=== PATIENT | male | born 1965 | race Caucasian/White ===

== ENCOUNTER 2023-03-24 20:01 | Inpatient (IN) | payer BC, SELFPAY ==
[2023-03-24 15:12] VITALS: BP 143/67
[2023-03-24 15:51] LABS: ALT (SGPT) 20 U/L (0-50); AST (SGOT) 27 U/L (17-59); Albumin 3.7 g/dl (3.5-5.0); Alkaline Phosphatase 120 U/L (38-126); Blood Urea Nitrogen 6 mg/dl (9-20); Calcium 8.8 mg/dl (8.4-10.2); Carbon Dioxide 22 mmol/L (22-30); Chloride 94 mmol/L (98-107); Glucose 144 mg/dl (70-99); Potassium 4.8 mmol/L (3.5-5.1); Sodium 129 mmol/L (135-145); Total Bilirubin 0.5 mg/dl (0.2-1.3); Total Protein 6.6 g/dl (6.3-8.2); eGFR > 60.00
[2023-03-24 16:07] LABS: % Basophils 1.2 % (0-2); % Immature Granulocytes 0.3 % (0-0.5); % Lymphocytes 27.2 % (20.5-51.1); % Monocytes 11.7 % (1.7-9.3); % Neutrophils 55.6 % (42.2-75.2); Absolute Basophils 0.1 10^3/uL (0-0.2); Absolute Eosinophils 0.3 10^3/uL (0-0.7); Absolute Lymphocytes 1.9 10^3/uL (1.2-3.4); Absolute Monocytes 0.8 10^3/uL (0.1-0.6); Absolute Neutrophils 3.8 10^3/uL (1.4-6.5); Hematocrit 34.3 % (39.0-52.0); Hemoglobin 12.4 g/dL (13.0-18.0); Mean Corp Hgb Conc. 36.2 g/dL (33.0-37.0); Mean Corpuscular Hgb 34.6 pg (27.0-31.0); Mean Corpuscular Volume 95.8 fL (80.0-94.0); Mean Platelet Volume 9.2 fL (7.4-10.4); Nucleated Red Blood Cells % 0 % (-); Platelet Count 241 10^3/uL (130-400); Red Blood Cell Count 3.58 10^6/uL (4.70-6.10); Red Cell Dist. Width 11.5 % (11.5-14.5); White Blood Cell Count 6.8 10^3/uL (4.8-10.8)
--- NOTE | 2023-03-24 16:36 | ED.SKININJ ---
HPI-Injury
General
Chief Complaint: Skin Problem
Source: patient
Exam Limitations: none
Time Seen by Provider: 03/24/23 16:21
Nursing documentation reviewed up to this point in time: agreed with
Travel History
Have you had any contact with someone who has COVID-19?: No
Do you have any symptoms of coronavirus? Fever > 100 degrees, chills, cough, shortness of breath, sore throat, loss of taste or smell, muscle aches, or headache?: No
History of Present Illness-Injury
Is this injury a work related problem?: No
Is pt an associate of [facility]?: No
Initial Injury comments:
Patient to ED with complaint of pain, redness, swelling left foot. Worsening ulcer left 3rd toe. States he was seen by podiatry approx 3 weeks. Had calus shaved off left 3rd toe. Has been dealing with wound since. Seen by PCP on Saturday and
placed on keflex. Had outpatient US, no dvt. States symptoms continue to worsen. Denies fever/chills. Brought to ED by family for eval.
Past History
Past History
ED Past Medical History: HTN, Hypercholesterolemia and NIDDM
ED Past Surgical History: Urological
Social History
Tobacco: Smoker
Alcohol: Occasional
Drug: None
Employment: Employed
Review of Systems
Review of Systems
Allergies reviewed?: Yes
All Other Systems: ROS reviewed and negative except as documented in HPI and ROS
Constitutional: Reports no symptoms
EENT: Reports no symptoms
Respiratory: Reports no symptoms
Cardiac: Reports no symptoms
ABD/GI: Reports no symptoms
Musculoskeletal: Reports joint pain (left 3rd toe pain)
Skin: Reports other (leftdistal 3rd toe ulceration. Pain redness and swelling to toe, foot.)
Neurological: Reports no symptoms
Psychiatric: Reports no symptoms
Phy Exam
General Physical Exam
General Presentation: well appearing
General age: appears stated age
General Skin: warm
General Habitus: normal
General Hydration: appears well hydrated
Musculoskeletal Exam
Musculoskeletal Exam: neuro vasc intact and other (Cellulitis, ulceration left distal 3rd toe. Pain redness and swelling to foot.)
Skin Exam
Skin Exam: other (ulceration left distal 3rd toe. Redness and swelling to toe and foot)
Psychiatric Exam
Psychiatric Exam: normal mood/affect
Course
Orders/Labs/Results
Orders:
Orders
03/24/23 Dinner
2000 calorie (17 carb) Diabetic
03/24/23 15:27
CMP [Comprehensive Metabolic Panel] Urgent
Complete Blood Count/With Diff Urgent
Blood Culture Urgent
LENNY Source: Blood/Venous
Specimen Description:
03/24/23 16:35
Foot, Left 3 View [CR Foot - Left Min 3 Views] Urgent
Comment:
Reason For Exam: Left 3rd toe ulceration, cellulitis
03/24/23 16:44
Vancomycin 1 Gram/200 ml [Vancocin] 1 gram in 200 ml IV NOW
03/24/23 17:00
Wound Culture [Wound/Abscess/Other Culture] Urgent
LENNY Source: Foot
Specimen Description: Left
Date Specimen was Collected: 03/24/23
Time Specimen was Collected: 16:50
03/24/23 19:06
Admit/Transfer Patient As Directed
Co-Sign Provider:
Level of Care: Inpatient admission
Assign to:: Medical/Surgical
Physician / Group: [facility]sky/Hospitalist
Diagnosis: Left foot diabetic cellulitis
Reason for Hospitalization: Diabetic cellulitis unresponsive to oral antibiotic treatment
Expected length of stay greater than two midnights?: Yes
ELOS- Estimated Length of Stay in days: 4
I certify the patient meets the requirements for IP care: Yes
03/24/23 19:11
Code Status As Directed
Resuscitation Status: Full Code
03/24/23 21:19
0.9% Sodium Chloride [Nss (Preservative Free)] See Protocol IV PRN PRN
Lorazepam [Ativan] 0.5 mg PO HSPRN PRN
Lorazepam [Ativan] 1 mg IV Q1HPRN PRN
Lorazepam [Ativan] 1 mg IV Q2HPRN PRN
Lorazepam [Ativan] 2 mg IV Q1HPRN PRN
03/24/23 21:19
Consult Podiatry [PODIATRY CONSULT] Routine
Consulting Provider: Marichuy Cao
Was physician already notified: Yes
Lower Ext Joint, Left Without MR [MR Left Le Joint Without] Routine
Comment: no contrast
Reason For Exam: left distal foot infection
Recent pill cam endoscopy?: No
Activity As Directed
Activity Level: Out of Bed-Early Mobility
MSAS SCORE As Directed
MSAS Score 0-4: Repeat MSAS every 2 hours until 0-4 for three consecutive assessments, then every 4 hours x 48
hours.
MSAS Score 5-7: For MILD withdrawl symptoms. Repeat MSAS and RASS every 2 hours
MSAS Score 8-11: For MODERATE withdrawal symptoms. Repeat MSAS and RASS every 1 hour. Consider ICU or IMU
level of care.
MSAS Score > 11: For SEVERE withdrawal symptoms. Repeat MSAS and RASS every 1 hour. Notify provider, consider
ICU level of care.
MSAS Additional Instructions: If no improvement or no decrease in score from severe to moderate within 12
hours, consult psychiatry
MSAS Notify Provider: Notify provider if patient requires more than 10 mg of Lorazepam in eight hour period.
Vital Signs As Directed
Frequency: Per unit guidelines
DX Deep Vein Thrombosis Video Routine
03/24/23 22:00
CefTRIAXone [Rocephin] 1,000 mg IV Q24H
Duloxetine Delayed Release [Cymbalta Delayed Release] 60 mg PO BID
Gabapentin [Neurontin] 300 mg PO TID
Labetalol [Trandate] 100 mg PO BID
03/25/23 00:00
Thiamine Injection 200 mg IV Q8
03/25/23 06:00
Basic Metabolic Panel IN AM
Cardiovascular Evaluation IN AM
Complete Blood Count/No Diff IN AM
Ferritin IN AM
Iron IN AM
TSH IN AM
Total Iron Binding IN AM
Urinalysis IN AM
Vitamin B12 IN AM
03/25/23 08:00
Amlodipine [Norvasc] 10 mg PO DAILY
Cyanocobalamin [Vitamin B-12] 1,000 mcg PO DAILY
FOLic ACID [Folvite] 1 mg PO DAILY
Lisinopril [Zestril] 40 mg PO DAILY
Nicotine [Nicoderm Transdermal] 14 mg TRANSDERM DAILY
Vitamin B Complex with C [B COMPLEX w/VITAMIN C] 1 caplet PO DAILY
03/25/23 18:00
Enoxaparin Sodium [Lovenox] 40 mg SC QPM
Rosuvastatin Calcium [Crestor] 5 mg PO QPM
03/27/23 20:00
Thiamine HCl [Vitamin B1] 100 mg PO BID
Abnormal Lab Results
03/24/23
15:27
RBC 3.58 L 10^6/uL
(4.70-6.10)
Hgb 12.4 L g/dL
(13.0-18.0)
Hct 34.3 L %
(39.0-52.0)
MCV 95.8 H fL
(80.0-94.0)
MCH 34.6 H pg
(27.0-31.0)
Absolute Monos (auto) 0.8 H 10^3/uL
(0.1-0.6)
Monocytes % 11.7 H %
(1.7-9.3)
Sodium 129 L mmol/L
(135-145)
Chloride 94 L mmol/L
(98-107)
BUN 6 L mg/dl
(9-20)
Creatinine 0.5 L mg/dL
(0.7-1.3)
Glucose 144 H mg/dl
(70-99)
03/24/23 15:27
03/24/23 15:27
Vital Signs
Initial and Last Documented VS:
Initial Vital Signs
Temp Pulse Resp BP Pulse Ox
98.4 F 73 18 143/67 99
03/24/23 15:12 03/24/23 15:12 03/24/23 15:12 03/24/23 15:12 03/24/23 15:12
Last Documented Vital Signs
Temp Pulse Resp BP Pulse Ox
98.5 F 80 18 121/103 97
03/24/23 21:19 03/24/23 22:18 03/24/23 21:19 03/24/23 22:18 03/24/23 21:19
*Radiology
Radiology exam reviewed: radiology read reviewed
*Pulse Oximetry
Patient hypoxic: no
*Critical Care Note
Total Time (30-74mins, 75-104mins- exclusive of procedures): Not Applicable
ED Attending Note
-
Portions of this chart may have been created with voice recognition software.� Occasional wrong word or��sound alike� substitutions may have occurred due to the inherent limitations of voice recognition software.
Discharge Plan
Departure
Patient Disposition: Admit
Date of Disposition: 03/24/23
Time of Disposition: 16:43
Presentation/result/management discussed w/ accepting MD/DO: Hospitalist
Patient with high blood pressure during this ER visit?: No
Condition: Good
Covid-19: Not Applicable
Discharge Problem:
Diabetic toe ulcer, Cellulitis of foot
Interventions
Interventions:
*Risk Screen - Suicide Last Done: 03/24/23 16:25
*General Assessment Last Done: 03/24/23 16:25
*Neglect/Abuse Screening Last Done: 03/24/23 16:25
ED- Fall Risk Assessment Last Done: 03/24/23 16:27
*ED COVID-19 Vaccine History Last Done: 03/24/23 15:12
*Nursing Disposition Last Done: 03/24/23 21:07
ED-Skin Assessment Last Done: 03/24/23 16:29
Discharge Date and Time
Discharge Date/Time: 03/24/23 21:14
[2023-03-24] MEDS: VANCOCIN 200 IV (18:16)
[2023-03-24 18:19] VITALS: BP 147/73
--- NOTE | 2023-03-24 18:44 | W.PN.HOSP.TC ---
Today's Communication/Plan
-
Podiatry consult
MRI
Assessment / Plan
Assessment / Plan
left 3rd toe with ulceration and infectious changes
concern for osteomyelitis
diabetic neuropathy
NIDDM x 20 yrs
Hyperlipidemia on Crestor
essential HTN
mild anemia
Cig use
1 ppd x 25 yrs, now 1/4 ppd Pt told absolutely must stop now
Etoh use
exact amount in question, dgt believes more than patient is admitting to. Will order MSAS
Allergy to Amox (currently on Keflex, which he can tolerate)
P:Podiatry consult
call placed and discussed with Dr. Cao, they will follow patient in hospital
empiric abx
MRI
full code
see dictated note
Anticipated Discharge: > 48 hours
Subjective/Interval History
-
Date of Service: March 24, 2023
57 yo with NIDDM x 20 yrs presents with lesion on left 3rd toe
Objective Data
-
Labs:
Laboratory Results
03/24/23
15:27
WBC 6.8
Hgb 12.4 L
Hct 34.3 L
Plt Count 241
Sodium 129 L
Potassium 4.8
Chloride 94 L
Carbon Dioxide 22
BUN 6 L
Creatinine 0.5 L
Glucose 144 H
Calcium 8.8
Total Bilirubin 0.5
AST 27
ALT 20
Alkaline Phosphatase 120
Vital Signs:
Vital Signs
Temp Pulse Resp BP Pulse Ox
98.4 F 87 15 147/73 97
03/24/23 15:12 03/24/23 18:20 03/24/23 18:20 03/24/23 18:19 03/24/23 18:20
Review of Systems
-
History Source: Patient and Family (dgt in room)
Constitutional: Reports Fever
EENT: Reports No Symptoms Reported
Respiratory: Reports No Symptoms
Cardiac: Reports No Symptoms
Abdomen/GI: Reports No Symptoms
Genitourinary: Reports No Symptoms
Neuro: Reports Numbness (paresthesia/hypesthesia of feet)
Physical Exam
-
General: Well Developed, Well Nourished, No Apparent Distress, Comfortable and Obese
HEENT: Normocephalic, Atraumatic and Moist Mucous Membranes
Respiratory: Clear to Auscultation; Negative Wheezes, Rales or Rhonchi
Cardiac: Regular Rhythm and S1/S2
GI: Soft, Nontender and Nondistended
Genito-urinary: No Costovertebral Tender
Musculoskeletal: No Clubbing, No Cyanosis, Edema, Left Lower Extrem (left foot with edema) and Other (left 3rd toe with ulceration, redness of distal foot)
Neuro: Awake, Alert and Oriented
Psych: Calm
[2023-03-24 19:03] VITALS: BP 152/62
[2023-03-24 21:19] VITALS: BP 121/103; BMI 29.1
[2023-03-24 21:53] LABS: Glucose - Point of Care 162 mg/dl (70-99)
--- NOTE | 2023-03-24 22:17 | PHA.VAN.IN ---
Assessment
- Assessment
Renal Function: Appears similar to baseline
Maximum Temperature: 98.5
Concomitant Antimicrobials: ceftriaxone
AUC Dosing Plan
- Dosing Variables
Dosing Weight (kg): 89
Dosing CrCl (ml/min): 125
Vd coefficient (L/kg): 0.7
- Empiric Dosing
Initial / Loading Dose: 1000mg 03/24 18:16; 500 mg pending administration
Maintenance Regimen: 1500mg q12h
Estimated AUC (mcg*h/mL): 481
Estimated Peak (mcg*h/mL): 33.1
Estimated Trough (mcg/ml): 10.6
Estimated Half Life (H): 6.4
- Monitoring
No levels ordered at this time: consider in the next few days
MRSA Screen: Ordered per protocol
Pharmacokinetics Vancomycin I
- -
Patient Age: 57
Patient Sex: Male
Vancomycin Day #: 1
Indication: Skin And Soft Tissue
Requesting Provider: Dr Botello
Pertinent Antimicrobial Allergies:
Cephalosporins Allergy (Verified 03/24/23 15:17) Patient unaware, denies
amoxicillin Allergy (Verified 03/24/23 15:17) Swelling, rash, blisters
Height / Weight:
Height 5 ft 9 in
Actual Weight 89.222 kg
- Vital Signs / Lab Results
Temp Pulse Resp BP Pulse Ox
98.5 F 97 18 121/103 97
03/24/23 21:19 03/24/23 21:19 03/24/23 21:19 03/24/23 21:19 03/24/23 21:19
Lab Results - Hematology
03/24/23
15:27
WBC 6.8
Lab Results - Chemistry
03/24/23
15:27
BUN 6 L
Creatinine 0.5 L
Albumin 3.7
[2023-03-24] MEDS: TRANDATE 100 MG PO (22:18)
[2023-03-24] MEDS: NEURONTIN 300 MG PO (22:18)
[2023-03-24] MEDS: ROCEPHIN 1000 MG IV (22:18)
[2023-03-24] MEDS: STERILE WATER FOR INJECTION 10 ML IV (22:18)
[2023-03-24] MEDS: CYMBALTA DELAYED RELEASE 60 MG PO (22:18)
[2023-03-24] MEDS: ATIVAN 0.5 MG PO (22:19)
[2023-03-24 23:00] VITALS: BP 126/60
[2023-03-24] MEDS: VANCOCIN HCL 500 MG 100 IV (23:41)
[2023-03-24] MEDS: THIAMINE INJECTION 200 MG IV (23:41)
[2023-03-25] VITALS (9 sets, daily range): BP systolic 129–168; BP diastolic 62–81
[2023-03-25] MEDS: VANCOCIN 300 MG IV (05:21)
[2023-03-25] MEDS: VANCOCIN 300 ML IV (05:21)
[2023-03-25 06:52] LABS: Hematocrit 35.9 % (39.0-52.0); Mean Corp Hgb Conc. 36.2 g/dL (33.0-37.0); Mean Corpuscular Hgb 34.9 pg (27.0-31.0); Mean Corpuscular Volume 96.2 fL (80.0-94.0); Mean Platelet Volume 9.2 fL (7.4-10.4); Platelet Count 257 10^3/uL (130-400); Red Blood Cell Count 3.73 10^6/uL (4.70-6.10); Red Cell Dist. Width 11.6 % (11.5-14.5); White Blood Cell Count 5.1 10^3/uL (4.8-10.8)
--- NOTE | 2023-03-25 07:10 | PTCARENOTE ---
Patient arrived on unit @2110 via wheelchair from ED. Patient AAox3 ambulate to bed from wheelchair. Skin assessment completed, oriented to unit, call shelby within reach, MSAS protocol initiated as ordered.
[2023-03-25 07:15] LABS: Blood Urea Nitrogen 6 mg/dl (9-20); Calcium 8.8 mg/dl (8.4-10.2); Carbon Dioxide 28 mmol/L (22-30); Chloride 96 mmol/L (98-107); Estimated Creatinine Clearance > 125 ml/min; Glucose 145 mg/dl (70-99); HDL Cholesterol 69 mg/dl; Iron 93 ug/dl (49-181); LDL Cholesterol, Calculated 50 mg/dl; Sodium 133 mmol/L (135-145); Total Cholesterol 128 mg/dl (50-199); Triglyceride 47 mg/dl (10-149); Very Low Density Lipoprotein 9 mg/dl (0-30); eGFR > 60.00
[2023-03-25 07:26] LABS: Urine Albumin Negative (Neg - Trace); Urine Bilirubin Negative (Negative); Urine Character Clear (Clear); Urine Color Yellow; Urine Glucose Negative (Negative); Urine Ketone Negative (Negative); Urine Leukocyte Negative (Negative); Urine Nitrite Negative (Negative); Urine Occult Blood Negative (Negative); Urine Urobilinogen Negative (Neg - 1+)
[2023-03-25 07:26] LABS: Percent Saturation 29 % (20-50); Total Iron Binding Capacity 317 ug/dl (261-462)
[2023-03-25 07:44] LABS: TSH 2.59 uIU/ml (0.47-4.68)
[2023-03-25 07:48] LABS: Ferritin 95.5 ng/ml (17.9-464.0)
[2023-03-25 07:54] LABS: Glucose - Point of Care 151 mg/dl (70-99)
[2023-03-25 08:03] LABS: Vitamin B12 163 pg/ml (239-931)
--- NOTE | 2023-03-25 08:09 | PHA.VAN.FU ---
Vancomycin Assessment / Plan
- Assessment
Renal Function: Stable
In the past 24 hrs, patient has been: Afebrile
Concomitant Antimicrobials: ceftriaxone
- Dosing Plan
Continue: Vanc 1500mg Q12H
- Monitoring Plan
No level(s) ordered at this time: consider levels in next few days
- Follow Up
Pharmacy will continue to follow.
Vancomycin Follow UP
- -
Patient Age: 57
Patient Sex: Male
Vancomycin Day #: 2
Indication: Skin And Soft Tissue
Requesting Provider: Dr Botello
Pertinent Antimicrobial Allergies:
Cephalosporins Allergy (Verified 03/24/23 15:17) Patient unaware, denies
amoxicillin Allergy (Verified 03/24/23 15:17) Swelling, rash, blisters
Height / Weight:
Height 5 ft 9 in
Actual Weight 89.222 kg
Pertinent Past Medical History: DM
- Vital Signs / Lab Results
Temp Pulse Resp BP Pulse Ox
98.1 F 71 17 159/76 97
03/25/23 07:00 03/25/23 07:00 03/25/23 07:00 03/25/23 07:00 03/25/23 07:00
Lab Results - Hematology
03/24/23 03/25/23
15:27 06:07
WBC 6.8 5.1
Lab Results - Chemistry
03/24/23 03/25/23
15:27 06:07
BUN 6 L 6 L
Creatinine 0.5 L 0.5 L
Estimated Creat Clear > 125
Albumin 3.7
Lab Results - Urine
03/25/23
06:56
Urine Nitrite Negative
Ur Leukocyte Esterase Negative
[2023-03-25 09:54] LABS: Glycohemoglobin (HgbA1c) 7.2 % (4.0-5.6)
[2023-03-25] MEDS: VITAMIN B-12 1000 MCG PO (10:09)
[2023-03-25] MEDS: ZESTRIL 40 MG PO (10:09)
[2023-03-25] MEDS: NICODERM TRANSDERMAL 14 MG TRANSDERM (10:15)
[2023-03-25] MEDS: TRANDATE 100 MG PO ×2 (10:15→21:53)
[2023-03-25] MEDS: NORVASC 10 MG PO (10:15)
[2023-03-25] MEDS: NEURONTIN 300 MG PO ×3 (10:16→21:51)
[2023-03-25] MEDS: FOLVITE 1 MG PO (10:16)
[2023-03-25] MEDS: B COMPLEX w/VITAMIN C 1 CAPLET PO (10:16)
[2023-03-25] MEDS: THIAMINE INJECTION 200 MG IV ×2 (10:16→17:35)
[2023-03-25] MEDS: CYMBALTA DELAYED RELEASE 60 MG PO ×2 (10:16→21:54)
[2023-03-25 11:37] LABS: Glucose - Point of Care 159 mg/dl (70-99)
--- NOTE | 2023-03-25 12:07 | W.CS.POD ---
Consult Summary - Podiatry
-
This is a 57 yo diabetic, neuropathic male, known to my practice and seen on 02/28/22 for routine diabetic foot care at which time an ulceration along the distal aspect of the left third toe was identified. He was followed in my office accordingly,
however, missed his 03/21/23 appointment 'due to work' and ultimately noticed an increase in swelling and redness as well as drainage from the toe, leading to his admission via the ER yesterday. The patient denies any fever, chills or sweats, nor
any stiffness behind the knee or in the groin, LLE.
Afebrile, VSS.
WBC: 6.8 on admission. Currently 5.1 (No leukocytosis)
Wound culture/Blood culture: PND
03/24/23 XRAY, left foot: Severe DJD of the firts MTPJ. No evidence of osteomyelitis in the left third toe. No osseous erosion, periosteal reaction or coritical disruption in the third toe noted.
03/25/23 MRI, left foot: 1. Acute osteomyelitis throughout the distal phalanx of the left third toe.
2. Large amount of subchondral bone marrow edema around the third metatarsophalangeal joint suggesting severe arthritis.
Assessment:
Cellulitis, infected, diabetic wound of the distal left third toe with acute osteomyelitis.
Wound probes directly to bone.
Debridement of infected bone necessary. Partial toe amputation anticipated.
Patient to the OR this evening at some point if medically stable.
NPO after noon.
--- NOTE | 2023-03-25 12:22 | WOUNDNOTE ---
L FOOT AND 3RD TOE
--- NOTE | 2023-03-25 12:23 | WOUNDNOTE ---
L 3RD TOE PLANTAR
[2023-03-25] MEDS: NOVOLOG FLEXPEN-MODERATE RESISTANCE SC ×2 (12:28→17:49)
[2023-03-25] MEDS: NOVOLOG FLEXPEN-MODERATE RESISTANCE 1 UNITS SC (12:28)
--- NOTE | 2023-03-25 12:35 | WOUNDNOTE ---
HERMAN RN note: Patient admitted with L diabetic toe ulcer, cellulitis.
See H&P for complete history.
PMH:NIDDM, 1/4 PPD smoker, HTN, Trauma to R leg, clotting issues.
Wound Location and type/assessment: Patient admitted with: L 3rd toe diabetic ulcer, Dr. Ovalle assessed patient before myself, wound probes to bone. MRI shows acute osteomyelitis. For OR this evening for toe amputation. + palpable pedal pulses.
Heels are intact and nurse confirmed that sacrum is intact.
Appetite: Good.
Pressure redistribution devices in place: Accumax, can turn self.
Plan: Will follow along peripherally and assist podiatry as needed.
--- NOTE | 2023-03-25 14:36 | W.PN.HOSP.TC ---
Today's Communication/Plan
-
OR tonight for amputation
Cont abx
F/u cultures
PT/OT
Assessment / Plan
Assessment / Plan
#left 3rd toe with ulceration
#Cellulitis, infected, diabetic wound of the distal left third toe with acute osteomyelitis.
-throughout the DISTAL PHALANX of the LEFT THIRD TOE.
-OR tonight for amputation
-cont abx
-F/u cultures
-PT/OT thereafter
-Appreciate Podiatry on board
#Diabetic neuropathy
#Hyponatremia, acute on chronic
-mild
-ctm with resuscitation
#NIDDM x 20 yrs
-HgBa1c - 7.2
Hyperlipidemia on Crestor
essential HTN - cont home meds
Arthritis - f/u outpatient
Cig use
1 ppd x 25 yrs, now 1/4 ppd Pt educated on cessation
Etoh use
exact amount in question, dgt believes more than patient is admitting to. Cont MSAS
Total time spent on today's encounter was 51 minutes which included time spent in counseling the patient/family regarding diagnosis and treatment plan as listed above, goals of care, and symptom management. Case was discussed with nursing staff,
specialists, and care coordinators/case management. All labs and imaging personally reviewed by me. Remainder the time spent in detailed review of previous records, lab data, imaging, and other medical provider documentation.
Anticipated Discharge: > 48 hours
Subjective/Interval History
-
Date of Service: March 25, 2023
no acute events overnight
Objective Data
-
Labs:
Laboratory Results
03/25/23
06:07
WBC 5.1
Hgb 13.0
Hct 35.9 L
Plt Count 257
Sodium 133 L
Potassium 4.0
Chloride 96 L
Carbon Dioxide 28
BUN 6 L
Creatinine 0.5 L
Glucose 145 H
Calcium 8.8
Vital Signs:
Vital Signs
Temp Pulse Resp BP Pulse Ox
98.1 F 71 17 159/76 97
03/25/23 07:00 03/25/23 07:00 03/25/23 07:00 03/25/23 07:00 03/25/23 07:00
I&O
03/24/23 03/25/23 03/26/23
06:59 06:59 06:59
Intake Total 1360 / 1360
Balance 1360 / 1360
Review of Systems
-
History Source: Patient
All other systems: Not reviewed unless documented
Physical Exam
-
General: Well Developed, Well Nourished, No Apparent Distress, Comfortable and Obese
HEENT: Normocephalic, Atraumatic and Moist Mucous Membranes
Respiratory: Clear to Auscultation; Negative Wheezes, Rales or Rhonchi
Cardiac: Regular Rhythm and S1/S2
GI: Soft, Nontender and Nondistended
Genito-urinary: No Costovertebral Tender
Musculoskeletal: No Clubbing, No Cyanosis, Edema, Left Lower Extrem (left foot with edema) and Other (left 3rd toe with ulceration, redness of distal foot)
Neuro: Awake, Alert and Oriented
Psych: Calm
Data Reviewed
-
Labs: Labs Reviewed by me
--- NOTE | 2023-03-25 14:57 | CON.ID ---
Consultation
-
Date/Time Consultation Requested: March 25, 2023 1443
Date/Time Consultation Performed: March 25, 2023 1500
Requesting Provider: Dr. Mayur William
Performing Provider: Dr. Elaina Landrum
Reason for Consultation: Osteo
Chief Complaint / Past History
Chief Complaint
Toe redness and swelling
History of Present Illness
57-year-old male with diabetes mellitus, neuropathy, who started having left third toe mild redness approximately 3 weeks ago. He had a callus on the tip of his left third toe. The callus was shaved off by podiatry and underneath was noted to have
a wound. Over the next 2 weeks the redness of the toe increased, his left foot became very edematous. His primary care physician prescribed cephalexin which he took for 2 days without improvement. He therefore came to the hospital yesterday. No
fevers or chills. MRI of the foot shows acute osteomyelitis of the third toe. Since being in the hospital, his reports that the foot edema has significantly improved.
Past History
Additional Past Medical History:
DM
Neuropathy
HTN
Dyslipidemia
Testicular cyst orchiectomy
Right knee arthroscopic surgery
Allergy History:
amoxicillin Allergy (Verified 03/24/23 15:17)
Swelling, rash, blisters
Cephalosporins Allergy (Verified 03/25/23 10:42)
Patient unaware, denies/tolerated ceftriaxone 02/2022
Medications Reviewed: Yes
Current Antibiotics:
Vancomycin
ceftriaxone
Social History
Tobacco: Smoker (02/28ppd)
Alcohol: Occasional (2-3 drinks /week)
Drug: None
Personal:
Family History
Family History: Not Pertinent
Review of Systems
Review of Systems
General: Negative Fever, Chills or Change in Appetite
HEENT: Negative Sinus Problems, Headache or Pharyngitis
Respiratory: Negative Dyspnea, Cough or Hemoptysis
Gasteroenterology: Other (no diarrhea); Negative Nausea or Vomiting
Genital / Urological: Negative Dysuria or Flank Pain
Endocrine: Negative Weakness or Fatigue
Neurological: Negative Headache or Dizziness
All systems: All other systems were reviewed and were negative
Vital Signs
Temp Pulse Resp BP Pulse Ox
98.0 F 79 17 168/81 96
03/25/23 14:36 03/25/23 14:36 03/25/23 14:36 03/25/23 14:36 03/25/23 14:36
Physical Exam
Physical Exam
Constitutional: No Acute Distress and Comfortable
Eyes: Sclera Anicteric
Cardiovascular: Regular Rate and S1/S2
Pulmonary: Clear
Gastrointestinal: Soft, Non Tender, Non Distended and Normal Bowel Sounds
Genito-Urinary: Negative White or CVA Tenderness
Extremities: Edema (left foot 1+) and Pulses (+ pedal pulses left foot)
Wound: Other (left 3rd toe + bright erythema/edema, distal tuft with wound )
Neurological: AO x 3
Lab / Diagnostic Study Results
03/25/23 06:07
03/25/23 06:07
Abs Immat Gran (auto) 0.0 10^3/uL (0-0.05) 03/24/23 15:27
Absolute Neuts (auto) 3.8 10^3/uL (1.4-6.5) 03/24/23 15:27
Absolute Lymphs (auto) 1.9 10^3/uL (1.2-3.4) 03/24/23 15:27
Absolute Monos (auto) 0.8 10^3/uL (0.1-0.6) H 03/24/23 15:27
Absolute Basos (auto) 0.1 10^3/uL (0-0.2) 03/24/23 15:27
Immature Gran % 0.3 % (0-0.5) 03/24/23 15:27
Neutrophils % 55.6 % (42.2-75.2) 03/24/23 15:27
Lymphocytes % 27.2 % (20.5-51.1) 03/24/23 15:27
Monocytes % 11.7 % (1.7-9.3) H 03/24/23 15:27
Eosinophils % 4.0 % (0-6) 03/24/23 15:27
Basophils % 1.2 % (0-2) 03/24/23 15:27
Microbiology Results
Micro:
03/24/23 17:00 Wound Culture - Pending
Foot - Left Gram Stain - Preliminary
03/24/23 15:27 Blood Culture - Pending
Blood/Venous
03/25/23 06:56 MRSA Screen - Pending
Nose
03/25/23 MRI LLE wo contrast: ACUTE OSTEOMYELITIS throughout the DISTAL PHALANX of the LEFT THIRD TOE. Large amount of subchondral bone marrow edema around the third metatarsophalangeal joint suggesting severe arthritis.�
Assessment / Plan
# Acute osteo of left third toe
# Chronic diabetic ulcer left third toe
# DM A1c 7.2
# PCN allergy. Tolerated cephalosporins
- For toe amp today.
- Replace ceftriaxone with cefepime.
-Can dc Vancomycin.
--- NOTE | 2023-03-25 15:48 | CM ---
Reviewed chart, met with patient and his daughter who was at bedside to obtain information for assessment. Patient stated that he lives with his spouse and 20 y/o son in a single two story home with two steps to enter. Patient described himself as
independent with all ADLs, personal care, dressing, bathing and toileting. He ambulates without assistive device. Patient can do eligibility worker, cook, clean and do laundry.
He drives and can transport himself to his provider appointments and do all his own shopping.
Patient denied any DME with exception of a Glucometer.
Patient has a PCP Dr. Anna Ducnan. He has a prescription plan and uses the [facility] in [place] for all his medications.
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
Patient's daughter asked about unemployment benefits. 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 She was advised to go on [email or web address] and complete an application with the
state. More specific information was offered or resources, however patient's daughter stated that her daughter has MA and disability and she has been through the process before so she understands how to proceed. CM contact information provided.
Plan: Case management will continue to follow and assist with discharge planning. Patient will return home with supportive family and apply for disability.
[2023-03-25 16:35] LABS: Glucose - Point of Care 148 mg/dl (70-99)
[2023-03-25] MEDS: CRESTOR 5 MG PO (17:33)
[2023-03-25] MEDS: MAXIPIME 2000 MG IV (17:36)
[2023-03-25] MEDS: STERILE WATER FOR INJECTION 10 ML IV (17:36)
[2023-03-25] MEDS: LOVENOX SC (18:48)
[2023-03-25 20:01] LABS: Glucose - Point of Care 139 mg/dl (70-99)
--- NOTE | 2023-03-25 20:03 | W.PN.UPDATE ---
Update Note
Progress Note Update
Patient consent for procedure to address acute osteomyelitis of the left third toe obtained at bedside. The patient understands the benefits, risks and possible complications of the proposed procedure, as well as the potential need for additional
surgery.
Procedure: Partial amputation of left third toe.
Proximal bone and soft tissues viable. Surgical cure likely.
Specimen of infected bone sent to path/micro. Clean bone margin to path.
-Resume Diet
-PO XRAYS, left foot.
-NWB Left foot for 24 hours
-Wedged surgical shoe ordered to bedside
--- NOTE | 2023-03-25 20:07 | SUR.PHASEI ---
REc'd sleepy in bed with HOB elevated low fowlers, oriented x 3 by RN, positioned for comfort, denies c/o
--- NOTE | 2023-03-25 20:19 | SUR.PHASEI ---
alert, awake, vss, Dr Ovalle in
--- NOTE | 2023-03-25 20:32 | SUR.PHASEI ---
Alert, awake stable , unable to give report at present, no one is answering phone
[2023-03-25 21:38] LABS: Glucose - Point of Care 129 mg/dl (70-99)
[2023-03-26] MEDS: THIAMINE INJECTION 200 MG IV ×3 (00:57→15:56)
[2023-03-26 06:25] LABS: Hematocrit 38.1 % (39.0-52.0); Hemoglobin 13.8 g/dL (13.0-18.0); Mean Corp Hgb Conc. 36.2 g/dL (33.0-37.0); Mean Corpuscular Hgb 34.5 pg (27.0-31.0); Mean Corpuscular Volume 95.3 fL (80.0-94.0); Platelet Count 270 10^3/uL (130-400); Red Cell Dist. Width 11.6 % (11.5-14.5); White Blood Cell Count 6.4 10^3/uL (4.8-10.8)
[2023-03-26 07:16] LABS: Blood Urea Nitrogen 8 mg/dl (9-20); Calcium 9.3 mg/dl (8.4-10.2); Carbon Dioxide 26 mmol/L (22-30); Chloride 93 mmol/L (98-107); Estimated Creatinine Clearance > 125 ml/min; Glucose 188 mg/dl (70-99); Sodium 131 mmol/L (135-145); eGFR > 60.00
[2023-03-26 07:17] VITALS: BP 141/77
[2023-03-26 07:23] LABS: Potassium 4.1 mmol/L (3.5-5.1)
[2023-03-26 07:33] LABS: Glucose - Point of Care 220 mg/dl (70-99)
[2023-03-26] MEDS: B COMPLEX w/VITAMIN C 1 CAPLET PO (07:58)
[2023-03-26] MEDS: NEURONTIN 300 MG PO ×2 (07:58→15:56)
[2023-03-26] MEDS: FOLVITE 1 MG PO (07:58)
[2023-03-26] MEDS: NOVOLOG FLEXPEN-MODERATE RESISTANCE 3 UNITS SC ×2 (07:58→13:14)
[2023-03-26] MEDS: CYMBALTA DELAYED RELEASE 60 MG PO (07:58)
[2023-03-26] MEDS: TRANDATE 100 MG PO (07:59)
[2023-03-26] MEDS: VITAMIN B-12 1000 MCG PO (07:59)
[2023-03-26] MEDS: ZESTRIL 40 MG PO (07:59)
[2023-03-26] MEDS: NICODERM TRANSDERMAL 14 MG TRANSDERM (08:00)
[2023-03-26] MEDS: STERILE WATER FOR INJECTION 10 ML IV ×2 (08:01→16:53)
[2023-03-26] MEDS: MAXIPIME 2000 MG IV ×2 (08:01→16:52)
[2023-03-26] MEDS: NORVASC 10 MG PO (08:01)
[2023-03-26] MEDS: LR 1000 IV (09:34)
--- NOTE | 2023-03-26 10:45 | WOUNDNOTE ---
HERMAN RN NOTE: Followed up post surgery, reviewed Dr. Ovalle's report. L toe with dry intact dressing and alma wrap. Wedged surgical shoe ordered for patient by Information Systems Consultant and NWB L foot for 24 hrs. Will sign off unless needed.
[2023-03-26 12:34] LABS: Glucose - Point of Care 212 mg/dl (70-99)
--- NOTE | 2023-03-26 13:41 | W.PN.HOSP.TC ---
Addendum entered and electronically signed by Mayur William MD 03/27/23 17:13:
[id number]
Original Note:
Today's Communication/Plan
-
cephalexin 10 days
f/u podiatry outpatient
f/u pcp within 1 week
bmp, cbc in 1 week
Assessment / Plan
Assessment / Plan
#left 3rd toe with ulceration
#Cellulitis, infected, diabetic wound of the distal left third toe with acute osteomyelitis.
-throughout the DISTAL PHALANX of the LEFT THIRD TOE.
-Partial amputation of left third toe. - appears to be curative as per podiatry
-Cephalexin 10 days per ID
-PT/OT
-Appreciate Podiatry and ID on board
#Diabetic neuropathy
#Hyponatremia, acute on chronic
-mild
-ctm with resuscitation
FWR
#NIDDM x 20 yrs
-HgBa1c - 7.2
Hyperlipidemia on Crestor
essential HTN - cont home meds
Arthritis - f/u outpatient
Cig use
1 ppd x 25 yrs, now 1/ ppd Pt educated on cessation
Etoh use
exact amount in question, dgt believes more than patient is admitting to. Cont MSAS
More than 30 minutes spent in discharge including
Final examination of the patient
Summarizing hospital stay
Instructions for continuing care to all relevant caregivers
Preparation of discharge records, prescriptions, and referral forms
Total time spent (35 in minutes):
Anticipated Discharge: Today
Subjective/Interval History
-
Date of Service: March 26, 2023
Appears to have curative resection of the toe as per podiatry. Tolerated procedure well
Objective Data
-
Labs:
Laboratory Results
03/26/23
05:44
WBC 6.4
Hgb 13.8
Hct 38.1 L
Plt Count 270
Sodium 131 L
Potassium 4.1
Chloride 93 L
Carbon Dioxide 26
BUN 8 L
Creatinine 0.5 L
Glucose 188 H
Calcium 9.3
Vital Signs:
Vital Signs
Temp Pulse Resp BP Pulse Ox
98.3 F 70 16 141/77 97
03/26/23 07:17 03/26/23 08:01 03/26/23 07:17 03/26/23 08:01 03/26/23 07:17
I&O
03/25/23 03/26/23 03/27/23
06:59 06:59 06:59
Intake Total 2350 / 2350
Output Total 300 / 300
Balance 2049 / 2049
Review of Systems
-
History Source: Patient
All other systems: Not reviewed unless documented
Data Reviewed
-
Diagnostic Radiology: Image personally visualized and interpreted and Report Reviewed by me
MRI: Image personally visualized and interpreted and Report Reviewed by me
Labs: Labs Reviewed by me
--- NOTE | 2023-03-26 13:43 | W.DS.TRANS ---
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
-
Discharge Instructions:
Discharge Diagnosis/Procedures
#left 3rd toe with ulceration
#Cellulitis, infected, diabetic wound of the
distal left third toe with acute osteomyelitis.
Diet Low Cholesterol,Low Fat,Diabetic, Carb
Controlled,Restrict fluids to 64 oz
Blood Work cbc, bmp in 1 week with pcp
Instructions:
Stand-Alone Forms:
Changes to Home Medications: Yes
Discharge Medications:
DC Medications w/original date entered in [facility]
amlodipine 10 mg tablet 10 mg PO DAILY Blood pressure 06/25/22
lisinopril 40 mg tablet 40 mg PO DAILY Blood pressure 06/25/22
metformin 1,000 mg tablet 1,000 mg PO BID@0800,1700 Diabetes 06/25/22
labetalol 100 mg tablet 100 mg PO BID #60 tabs 06/27/22
cyanoco,mecobalamin 1,000 mcg-folic acid 200 mcg disintegrating tablet 1 tab PO DAILY Supplement 03/24/23
duloxetine 60 mg capsule,delayed release (Cymbalta) 60 mg PO BID mental health 03/24/23
gabapentin 300 mg capsule 300 mg PO TID Neurological Condition 03/24/23
lorazepam 0.5 mg tablet 0.5 mg PO HSPRN PRN sleep 03/24/23
rosuvastatin 5 mg tablet (Crestor) 5 mg PO QPM High Cholesterol 03/24/23
vitamin B complex 1 tab PO DAILY Supplement 03/24/23
cephalexin 500 mg capsule 500 mg PO QID 10 days #40 caps 03/26/23
Home Medication Changes
cephalexin 500 mg capsule 500 mg PO QID 10 days #40 caps 03/26/23
Pending Results: No
--- NOTE | 2023-03-26 13:45 | W.DS.TRANS ---
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
-
Discharge Instructions:
Discharge Diagnosis/Procedures
#left 3rd toe with ulceration
#Cellulitis, infected, diabetic wound of the
distal left third toe with acute osteomyelitis.
Diet Low Cholesterol,Low Fat,Diabetic, Carb
Controlled,Restrict fluids to 64 oz
Blood Work cbc, bmp in 1 week with pcp
Instructions:
Stand-Alone Forms:
Changes to Home Medications: Yes
Discharge Medications:
DC Medications w/original date entered in [facility]
amlodipine 10 mg tablet 10 mg PO DAILY Blood pressure 06/25/22
lisinopril 40 mg tablet 40 mg PO DAILY Blood pressure 06/25/22
metformin 1,000 mg tablet 1,000 mg PO BID@0800,1700 Diabetes 06/25/22
labetalol 100 mg tablet 100 mg PO BID #60 tabs 06/27/22
cyanoco,mecobalamin 1,000 mcg-folic acid 200 mcg disintegrating tablet 1 tab PO DAILY Supplement 03/24/23
duloxetine 60 mg capsule,delayed release (Cymbalta) 60 mg PO BID mental health 03/24/23
gabapentin 300 mg capsule 300 mg PO TID Neurological Condition 03/24/23
lorazepam 0.5 mg tablet 0.5 mg PO HSPRN PRN sleep 03/24/23
rosuvastatin 5 mg tablet (Crestor) 5 mg PO QPM High Cholesterol 03/24/23
vitamin B complex 1 tab PO DAILY Supplement 03/24/23
cephalexin 500 mg capsule 500 mg PO QID 10 days #40 caps 03/26/23
Home Medication Changes
cephalexin 500 mg capsule 500 mg PO QID 10 days #40 caps 03/26/23
Pending Results: No
[2023-03-26 14:22] VITALS: BP 104/67; PULSE 81; O2SAT 98
--- NOTE | 2023-03-26 15:27 | CM ---
Received TT from attending. Patient medically cleared for discharge. Met with patient who vocalized no concerns and signed IMM. He confirmed that his daughter will be in later to pick him up and take him home.
Plan: Case management will continue to follow and assist with discharge planning. Home when patient's ride is here.
[2023-03-26 15:50] VITALS: BP 137/73
[2023-03-26 16:32] LABS: Glucose - Point of Care 149 mg/dl (70-99)
[2023-03-26] MEDS: NOVOLOG FLEXPEN-MODERATE RESISTANCE SC (16:41)
[2023-03-26] MEDS: CRESTOR 5 MG PO (16:52)
[2023-03-26] MEDS: LOVENOX 40 MG SC (16:53)
--- NOTE | 2023-03-26 19:37 | W.PN.POD ---
Today's Communication
Today's Communication
Patient for discharge.
Assessment / Plan
-
Assessment:
Cellulitis, infected, diabetic wound of the distal left third toe with acute osteomyelitis.
S/P one day partial second toe amputation, left foot.
Type 2 diabetes with peripheral neuropathy.
Plan:
Surgical shoe brought up to floor.
Dressing change at bedside.
Patient will keep dressing clean, dry and intact.
Activity restrictions given. Will use walker for ambulation.
RTO on Saturday03/29/23.
Subjective
Chief Complaint
S/P one day partial toe amputation, left third toe.
Subjective
Patient resting comfortably in bed. Denies fever, chills or sweats. Moderate pain in the foot is intermittent.
Objective
Temp Pulse Resp BP Pulse Ox
99.3 F 77 17 137/73 96
03/26/23 15:50 03/26/23 15:50 03/26/23 15:50 03/26/23 15:50 03/26/23 15:50
03/26/23 05:44
03/26/23 05:44
Vital Signs and Lab results were reviewed.
Dressing to left foot clean, dry and intact. No discharge into dressings noted.
Left third toe ampuation stump viable, slightly hyperemic, stable, with sutures intact and wound edges well apposed.
No active drainage, bleeding or malodor. No cellulitis or local signs of infection noted.
Review of Systems
Review of Systems
Review of Systems: No Fever and No Chills
--- NOTE | 2023-03-26 19:48 | PTCARENOTE ---
Received report from nelift RN. Dayshift RN informed this oracle applications developer order is in. Pt read discharge packet and verbalized understanding. PCT transported pt to main entrance via wheelchair. Will continue to monitor.
== END 2023-03-26 17:50 | disposition home or self-care (01) | DRG 617 ==
LOC: 3 WEST ACU 20:01
PROVIDERS: Physician Assistant; ADMITTING PHYSICIAN Internal Medicine; ATTENDING PHYSICIAN Internal Medicine; CONSULT PHYSICIAN Internal Medicine Infectious Disease; EMERGENCY PHYSICIAN Emergency Medicine; FAMILY PHYSICIAN Physician Assistant; OTHER PHYSICIAN Podiatrist Foot & Ankle Surgery
PROC: 0Y6U0Z2 Detachment at Left 3rd Toe, Mid, Open Approach (ICD-10-PCS; 2023-03-25)
DX: E11.69 Type 2 diabetes mellitus with other specified complication (principal); E87.1 Hypo-osmolality and hyponatremia; M86.172 Other acute osteomyelitis, left ankle and foot; E11.621 Type 2 diabetes mellitus with foot ulcer; E11.40 Type 2 diabetes mellitus with diabetic neuropathy, unspecified; I10 Essential (primary) hypertension; E78.00 Pure hypercholesterolemia, unspecified; D64.9 Anemia, unspecified; L97.529 Non-pressure chronic ulcer of other part of left foot with unspecified severity; L03.032 Cellulitis of left toe; F17.200 Nicotine dependence, unspecified, uncomplicated
CPT/HCPCS: 88305; 88311; 73620; 73630; 73721; 80048; 80053; 80061; 81003; 82607; 82728; 82962; 83036; 83540; 83550; 84443; 85025; 85027; 87040; 87070; 87075; 87077; 87147; 87176; 87186; 87205; 96365; 97162; 99285; 99406

== ENCOUNTER → 2023-04-08 09:08 | Outpatient (REF) | payer BC, SELFPAY | LOC: RAD 09:08 | PROVIDERS: ATTENDING PHYSICIAN Physician Assistant | DX: E11.59 Type 2 diabetes mellitus with other circulatory complications (principal); E11.42 Type 2 diabetes mellitus with diabetic polyneuropathy; R60.0 Localized edema; M79.604 Pain in right leg; M79.605 Pain in left leg | CPT/HCPCS: 93922; 93925 ==

== ENCOUNTER → 2023-05-10 12:29 | Outpatient (REF) | payer BC, SELFPAY | LOC: RAD 12:29 | PROVIDERS: ATTENDING PHYSICIAN Physician Assistant | DX: R60.0 Localized edema (principal); E11.59 Type 2 diabetes mellitus with other circulatory complications; E78.2 Mixed hyperlipidemia; I10 Essential (primary) hypertension; E11.42 Type 2 diabetes mellitus with diabetic polyneuropathy; K76.89 Other specified diseases of liver; F10.11 Alcohol abuse, in remission | CPT/HCPCS: 93970 ==

== ENCOUNTER → 2023-08-19 07:35 | Outpatient (REF) | payer BC, SELFPAY | LOC: EMG 07:35 | PROVIDERS: ATTENDING PHYSICIAN Physician Assistant | DX: E11.42 Type 2 diabetes mellitus with diabetic polyneuropathy (principal); R20.0 Anesthesia of skin | CPT/HCPCS: 95886; 95911 ==

== ENCOUNTER → 2024-01-30 12:57 | Outpatient (REF) | payer BC, SELFPAY | LOC: HWRAD 12:57 | PROVIDERS: ATTENDING PHYSICIAN Physician Assistant | DX: F17.210 Nicotine dependence, cigarettes, uncomplicated (principal) | CPT/HCPCS: 71271 ==

== ENCOUNTER → 2024-07-13 14:44 | Outpatient (REF) | payer BC, SELFPAY | LOC: RAD 14:44 | PROVIDERS: ATTENDING PHYSICIAN Physician Assistant | DX: M17.11 Unilateral primary osteoarthritis, right knee (principal) | CPT/HCPCS: 73564 ==

== ENCOUNTER 2024-08-11 06:05 | Day surgery (SDC) | payer BC, SELFPAY ==
[2024-08-07 11:05] LABS: % Basophils 0.8 % (0-2); % Eosinophils 3.8 % (0-6); % Immature Granulocytes 0.3 % (0-0.5); % Lymphocytes 18.8 % (20.5-51.1); % Monocytes 7.6 % (1.7-9.3); % Neutrophils 68.7 % (42.2-75.2); Absolute Basophils 0.1 10^3/uL (0-0.2); Absolute Eosinophils 0.3 10^3/uL (0-0.7); Absolute Lymphocytes 1.4 10^3/uL (1.2-3.4); Absolute Monocytes 0.6 10^3/uL (0.1-0.6); Absolute Neutrophils 5.1 10^3/uL (1.4-6.5); Hematocrit 34.5 % (39.0-52.0); Hemoglobin 12.4 g/dL (13.0-18.0); Mean Corp Hgb Conc. 35.9 g/dL (33.0-37.0); Mean Corpuscular Volume 91.8 fL (80.0-94.0); Mean Platelet Volume 9.2 fL (7.4-10.4); Nucleated Red Blood Cells % 0 % (-); Platelet Count 269 10^3/uL (130-400); Red Blood Cell Count 3.76 10^6/uL (4.70-6.10); Red Cell Dist. Width 12.1 % (11.5-14.5); White Blood Cell Count 7.4 10^3/uL (4.8-10.8)
[2024-08-07 11:50] LABS: Blood Urea Nitrogen 7 mg/dl (9-20); Calcium 9.4 mg/dl (8.4-10.2); Carbon Dioxide 24 mmol/L (22-30); Chloride 100 mmol/L (98-107); Glucose 189 mg/dl (70-99); Potassium 4.7 mmol/L (3.5-5.1); Sodium 134 mmol/L (135-145); eGFR > 60.00
[2024-08-11] VITALS (8 sets, daily range): BP systolic 127–163; BP diastolic 55–71; BMI 26.9
[2024-08-11 06:34] LABS: Glucose - Point of Care 153 mg/dl (70-99)
[2024-08-11] MEDS: TYLENOL 1000 MG PO (06:38)
[2024-08-11] MEDS: NORMOSOL-R/PLASMALYTE-A 1000 IV (06:39)
[2024-08-11 08:56] LABS: Glucose - Point of Care 149 mg/dl (70-99)
== END 2024-08-11 10:22 | disposition home or self-care (01) ==
LOC: SDS 06:05
PROVIDERS: ATTENDING PHYSICIAN Orthopaedic Surgery; FAMILY PHYSICIAN Physician Assistant
DX: M72.0 Palmar fascial fibromatosis [Dupuytren] (principal)
CPT/HCPCS: 26123; 88304; 36415; 80048; 82962; 85025; 93005